=== PATIENT | female | born 1995 | race Caucasian/White ===

== ENCOUNTER 2017-01-17 18:56 | Emergency (ER) | payer BC, OTHER ==
[~2017-01-17] VITALS: Ht 160 cm; Wt 69.9 kg
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
[2017-01-17] MEDS ORDERED: SODIUM CHLORIDE FLUSH 10 ML SYR IV PRN (19:10)
[2017-01-17] MEDS ORDERED: ONDANSETRON 2 MG/ML (Z0FRAN) 2 ML VIAL IV ONE (19:10)
[2017-01-17] MEDS ORDERED: SODIUM CHLORIDE FLUSH 3 ML SYR IV PRN (19:10)
[2017-01-17 19:31] LABS: MEAN PLATELET VOLUME 10.8 FL (6.0-9.5); PLATELET COUNT 291 10^3uL (150-450); WHITE BLOOD COUNT 13.06 10^3uL (4.0-11.0)
[2017-01-17 19:39] LABS: MEAN CORPUSCULAR HEMOGLOBIN 24.9 PG (26.0-34.0); MEAN CORPUSCULAR VOLUME 78 FL (80-100)
[2017-01-17 19:43] LABS: ALBUMIN 4.7 g/dL (3.4-5.0); ANION GAP 17.7 MEQ/L (3-15); CALCULATED IONIZED CALCIUM 3.5 mg/dL (3.8-4.6); TOTAL PROTEIN 8.6 g/dL (6.4-8.5)
[2017-01-17 19:44] LABS: BAND NEUTROPHILS % 5 % (0-6); EOSINOPHILS % 1 % (0-4); LYMPHOCYTES # 0.9 #; MONOCYTES # 0.1 #; MONOCYTES % 1 % (3-11); RBC MORPH NORMAL (NORMAL); SEGMENTED NEUTROPHILS % 86 % (51-67); TOTAL CELLS COUNTED 100
[2017-01-17] MEDS ORDERED: ONDA4TAB8 PO (20:22)
[2017-01-17 20:34] VITALS: BP 111/67
== END 2017-01-17 20:30 | disposition home or self-care (01) ==
LOC: ED 19:01
DX: A08.4 Viral intestinal infection, unspecified (principal)
CPT/HCPCS: 36415; 80053; 84703; 85025; 96361; 96374; 99283; J2405; J7030